=== PATIENT | female | born 1980 | race Caucasian/White ===

== ENCOUNTER 2017-01-08 19:36 | Emergency (ER) | payer OTHER ==
[~2017-01-08] VITALS: Ht 165.1 cm; Wt 220.4 kg
[2017-01-08 20:02] VITALS: Ht 165.1 cm; Wt 220.4 kg
[2017-01-08] MEDS ORDERED: PSEU120T2 PO (20:18)
[2017-01-08] MEDS ORDERED: PSEUCAP67 PO (20:18)
[2017-01-08] MEDS ORDERED: SALI1SPR3 NAE (20:18)
[2017-01-08] MEDS ORDERED: CEFU500T16 PO (20:41)
--- NOTE | 2017-01-08 20:42 | EMERGENCY ROOM VISIT NOTE ---
ED Visit Note First contact with patient: 20:14 CHIEF COMPLAINT: Left ear pain 1 week HISTORY OF PRESENT ILLNESS: Patient is a 36-year-old white female who presents to the emergency department for evaluation of left ear pain. She's had symptoms for 1 week. Prior to that she states that she has been sick with sinus and nasal congestion. She reports using Advil Cold and Sinus, Sudafed and saline nasal spray. She reports muffled hearing from the left ear and she thought that she felt some fluid in the ear so when she used her finger so we palpate ear canal she noted "blood and pus." She's not had any fevers. The left ear is primarily affected although she states she is beginning to feel similar symptoms in the right ear. She rates her pain a 3/10. REVIEW OF SYSTEMS: Review of systems as per HPI. All other systems reviewed were negative. At least 6 systems reviewed. PMH: Electronic medical records are reviewed and summarized as above/below. See Problem List. SOCIAL HISTORY: Patient lives at home. Lives with family. Nonsmoker. PHYSICAL EXAM: Vital Signs: Reviewed Nurse's notes. MENTAL STATUS: Alert and cooperative. Nontoxic appearing. HEAD: Atraumatic, without temporal or scalp tenderness. EYES: PERRL, EOMI, no discharge or injection. EARS: Right TM intact, calm a chronic scarring noted, no effusion, erythema or bulging. External canals clear. Examination of the left ear showed the external canal to be clear. No signs of otitis externa. TM is erythematous and purulent effusion is noted. There is no evidence for perforation. There is no pain, swelling or erythema over the mastoid. NOSE: Nares patent, turbinates edematous and boggy with clear rhinorrhea. MOUTH: Mucous membranes moist, no lesions, tongue and gums appear normal. THROAT: No pharyngeal injection, exudates, or tonsillar hypertrophy. Airway is patent. NECK: Supple, nontender, no lymphadenopathy. HEART: Regular rate and rhythm without murmurs, ectopy, gallops, or rubs. LUNGS: Clear to auscultation and breath sounds equal, no wheezes, rales, or rhonchi. SKIN: Normal. NEUROLOGICAL: Sensory and motor functions grossly intact. Normal gait. ED course: The patient has findings consistent with otitis media. Differential diagnoses entertained included URI, sinusitis, eustachian tube dysfunction, otitis externa, otitis media, TM perforation, among others. She was advised to continue the ocvi-vzv-kbnigwe medications and follow up with her primary care physician if her symptoms are not improving. 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 Surgical Problems: (1) History of cholecystectomy Status: Resolved Current/Historical Medications Scheduled Cefuroxime Axetil (Ceftin), 500 MG PO BID Pseudoephedrine Hcl (Sudafed 12 Hour), 120 MG PO BID Saline (Saline Nasal [place]), 2 SPRAYS LISA BID Scheduled PRN Pseudoephedrine-Ibuprofen (Advil Cold & Sinus), 1 CAP PO DIRECTED PRN for CONGESTION Allergies Coded Allergies: Amoxicillin (Verified Allergy, Severe, SOB-FACE SWELLS, 01/08/17) Penicillins (Verified Allergy, Severe, SOB-FACE SWELLS, 01/08/17) Famotidine (Verified Allergy, Intermediate, RASH, 01/08/17) Vital Signs Date Time Temp Pulse Resp B/P Pulse Ox O2 Delivery O2 Flow Rate FiO2 01/08/17 20:55 36.9 81 18 158/91 98 01/08/17 20:55 81 18 158/91 98 Room Air 01/08/17 20:02 36.9 84 18 166/93 98 Room Air Medications Administered Medications (Trade) Dose Ordered Sig/Adam Route Start Time Stop Time Status Last Admin Dose Admin Cefuroxime Axetil (Ceftin Tab) 500 mg NOW ONCE PO 01/08/17 20:45 01/08/17 20:46 DC 01/08/17 20:52 500 MG Departure Information Impression Primary Impression: Left otitis media Prescriptions Cefuroxime Axetil (CEFTIN) 500 Mg Tab 500 MG PO BID, #20 TAB Prov: Mirtha Walsh PA 01/08/17 Referrals Jan Webber M.D. (PCP) Patient Instructions My [facility] Additional Instructions Ceftin 500mg: Take one pill twice daily for 10 days for your ear infection. All antibiotics can cause diarrhea. If this occurs and you feel worse or it does not resolve in 1-2 days follow up with your doctor or return to the Emergency Department as this could be signs of serious underlying problems. Any medication can cause an allergic reaction, stop the pills immediately and return to the ER for rash, hives, breathing difficulties, or swelling. Tylenol and ibuprofen as needed for discomfort. Continue aodu-cxn-ybelciu medications for symptomatic care. Follow-up with your primary care physician next week if your symptoms are not improving.
[2017-01-08] MEDS ORDERED: CEFUROXIME AXETIL 250 MG TAB PO ONE (20:45)
[2017-01-08 20:55] VITALS: BP 158/91; PULSE 81; TEMP 36.9; O2SAT 98
== END 2017-01-08 20:56 | disposition home or self-care (01) ==
LOC: C.EDB 19:39 → C.EDD 20:56
DX: H66.92 Otitis media, unspecified, left ear (principal); I10 Essential (primary) hypertension; J45.909 Unspecified asthma, uncomplicated; Z88.0 Allergy status to penicillin

== ENCOUNTER 2017-01-15 08:58 | Emergency (ER) | payer OTHER ==
[~2017-01-15] VITALS: Ht 167.6 cm; Wt 220.0 kg
[~2017-01-15 08:58] MED LIST: CEFU500T16 PO; PSEU120T2 PO; PSEUCAP67 PO; SALI1SPR3 NAE
[2017-01-15 09:07] VITALS: BP 176/11; PULSE 80; TEMP 36.5; O2SAT 98; Ht 167.6 cm; Wt 220.0 kg
[2017-01-15] MEDS ORDERED: SULF10SO2 OPL (09:30)
--- NOTE | 2017-01-15 09:31 | EMERGENCY ROOM VISIT NOTE ---
ED Visit Note First contact with patient: 09:13 CHIEF COMPLAINT: "I think I have pink eye." HISTORY OF PRESENT ILLNESS: Patient is a 36-year-old white female who returns to the emergency department for evaluation of left eye redness, crusting and drainage that she noticed when she woke up this morning. I saw her here one week ago for URI symptoms and left ear pain and diagnosed her with a left otitis media. She is taking her Ceftin as prescribed. She states that she developed some increased congestion about 5 days ago. Her ear pain is improving however. Her nose very stuffy but she is unable to blow anything out of it. She does note some postnasal drip. She reports using Advil Cold and Sinus, Sudafed, Flonase and saline nasal spray. She's not had any fevers. She denies any ear pain at the present time. She reports that she cannot take Claritin because it "makes her heart race." She wears glasses but not contact lenses. Her right eye is not involved. She denies any eye pain or changes in vision. She denies any concern for foreign body. REVIEW OF SYSTEMS: Review of systems as per HPI. All other systems reviewed were negative. At least 6 systems reviewed. PMH: Electronic medical records are reviewed and summarized as above/below. See Problem List. SOCIAL HISTORY: Patient lives at home. Lives with family. Nonsmoker. PHYSICAL EXAM: Vital Signs: Reviewed Nurse's notes. MENTAL STATUS: Alert and cooperative. Nontoxic appearing. HEAD: Atraumatic, without temporal or scalp tenderness. EYES: PERRL, EOMI, left eye is slightly injected and there is some cobblestoning of the conjunctiva. Right eye is not involved. EARS: Tympanic membranes are intact bilaterally, clear fluid noted, no erythema or bulging of the TMs. Chronic scar is noted. External canals clear. There is no evidence for perforation. There is no pain, swelling or erythema over the mastoid. NOSE: Nares patent, turbinates edematous and boggy without rhinorrhea. MOUTH: Mucous membranes moist, no lesions, tongue and gums appear normal. THROAT: No pharyngeal injection, exudates, or tonsillar hypertrophy. Airway is patent. NECK: Supple, nontender, no lymphadenopathy. HEART: Regular rate and rhythm without murmurs, ectopy, gallops, or rubs. LUNGS: Clear to auscultation and breath sounds equal, no wheezes, rales, or rhonchi. SKIN: Normal. NEUROLOGICAL: Sensory and motor functions grossly intact. Normal gait. ED course: Patient was seen and evaluated as above. She will be placed on an antibiotic drop. Differential diagnoses entertained included an allergic rhinitis, allergic versus viral versus bacterial conjunctivitis, URI, sinusitis , eustachian tube dysfunction, otitis externa, otitis media, TM perforation, among others. She was advised to continue the nyux-xxv-prrovns medications and follow up with her primary care physician if her symptoms are not improving. 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 Surgical Problems: (1) History of cholecystectomy Status: Resolved Current/Historical Medications Scheduled Cefuroxime Axetil (Ceftin), 500 MG PO BID Pseudoephedrine Hcl (Sudafed 12 Hour), 120 MG PO BID Saline (Saline Nasal [place]), 2 SPRAYS LSIA BID Sulfacetamide Sodium (Ophth) (Bleph-10), 2 DROPS OPL QID Scheduled PRN Pseudoephedrine-Ibuprofen (Advil Cold & Sinus), 1 CAP PO DIRECTED PRN for CONGESTION Allergies Coded Allergies: Amoxicillin (Verified Allergy, Severe, SOB-FACE SWELLS, 01/15/17) Penicillins (Verified Allergy, Severe, SOB-FACE SWELLS, 01/15/17) Famotidine (Verified Allergy, Intermediate, RASH, 01/15/17) Vital Signs Date Time Temp Pulse Resp B/P Pulse Ox O2 Delivery O2 Flow Rate FiO2 01/15/17 09:07 36.5 80 18 176/11 98 Room Air Departure Information Impression Primary Impression: Conjunctivitis, left eye Prescriptions Sulfacetamide Sodium (Ophth) (BLEPH-10) 10 % Sangeetha 2 DROPS OPL QID, #5 ML Prov: Costlow, Mirtha C.,PA 01/15/17 Referrals Jan Webber M.D. (PCP) Patient Instructions My [facility] Additional Instructions 2 antibiotic drops in the left eye 4 times daily. You may also intermittently apply a cool compress and wear sunglasses for additional relief. Continue your prescriptions and the pxuf-[id number]-[id number] medications that you have been taking for your symptoms. Follow-up with your primary care provider this week for recheck.
== END 2017-01-15 09:42 | disposition home or self-care (01) ==
LOC: C.EDB 08:59 → C.EDA 09:42
DX: H10.9 Unspecified conjunctivitis (principal); I10 Essential (primary) hypertension; K21.9 Gastro-esophageal reflux disease without esophagitis; F32.9 Major depressive disorder, single episode, unspecified; J45.909 Unspecified asthma, uncomplicated; G89.29 Other chronic pain; Z86.718 Personal history of other venous thrombosis and embolism; Z87.828 Personal history of other (healed) physical injury and trauma; Z90.49 Acquired absence of other specified parts of digestive tract; Z88.0 Allergy status to penicillin; Z88.1 Allergy status to other antibiotic agents; Z88.8 Allergy status to other drugs, medicaments and biological substances

== ENCOUNTER 2018-06-16 12:10 | Emergency (ER) | payer OTHER ==
[~2018-06-16] VITALS: Ht 170.2 cm; Wt 222.0 kg
[2018-06-16 12:14] VITALS: TEMP 36.5; Ht 170.2 cm; Wt 222.0 kg
[2018-06-16] MEDS ORDERED: MoRPHine SULFATE 4 MG/ML 1 ML CARP\\VIAL IV STA (12:22)
[2018-06-16] MEDS ORDERED: SODIUM CHLORIDE 0.9% 1000ML 1,000 ML IV STA (12:22)
[2018-06-16] MEDS ORDERED: ONDANSETRON INJ 2 MG/ML 2 ML VIAL IV STA (12:22)
--- NOTE | 2018-06-16 12:32 | EMERGENCY ROOM VISIT NOTE ---
History Report prepared by [facility]: Pao Torrez Under the Supervision of: Dr. Scot Hays M.D. First contact with patient: 12:16 Chief Complaint: FLANK PAIN Stated Complaint: PAIN IN BACK,LOWER LEFT SIDE,FEVER,CHILLS History of Present Illness The patient is a 37 year old female who presents to the Emergency Room with complaints of persistent left sided flank pain for the past 3 days. She rates her pain as an 8/10 in severity. She reports she was at the [facility] 2 days ago when she drank a diet Pepsi and her pain developed, as well as increased urinary frequency, stating " I felt sicker than hell after drinking that". She notes she normally only drinks water or unsweetened iced tea. Movement worsens her pain. She denies any recent falls or trauma to her back. She reports a fever of 99 degrees and the chills. She has not been nauseous or vomiting. She denies any recent cough, cold symptoms, diarrhea or rashes. She has no history of kidney stones but has experienced urinary infections in the past. She believes her Mother has a history of kidney problems and is on dialysis. The patient does take daily Xarelto for a history of blood clots. She denies any current concern for . She denies any history of ovarian cysts. Her LMP was approximately May 27. 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 A total of 10 systems reviewed and were otherwise negative. 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 Surgical Problems: (1) History of cholecystectomy Family History Kidney disease Kidney stones Social History Smoking Status: Former Smoker Alcohol Use: none Drug Use: none Marital Status: single Housing Status: lives with family Occupation Status: unemployed Current/Historical Medications Scheduled Apixaban (Eliquis), 5 MG PO HS Levofloxacin (Levaquin), 750 MG PO QD@08 Scheduled PRN Acetaminophen (Tylenol), 975 MG PO Q6H PRN for Pain or Fever Oxycodone Ir (Roxicodone Ir), 1 TAB PO Q4H PRN for Pain Allergies Coded Allergies: Amoxicillin (Verified Allergy, Severe, SOB-FACE SWELLS, 06/16/18) Penicillins (Verified Allergy, Severe, SOB-FACE SWELLS, 06/16/18) Famotidine (Verified Allergy, Intermediate, RASH, 06/16/18) Physical Exam Vital Signs Date Time Temp Pulse Resp B/P (MAP) Pulse Ox O2 Delivery O2 Flow Rate FiO2 06/16/18 17:07 88 20 139/69 97 Room Air 06/16/18 14:30 91 18 123/59 100 Room Air 06/16/18 12:14 36.5 97 18 162/90 99 Room Air Physical Exam GENERAL: Patient is in no acute distress. HEENT: No acute trauma, normocephalic atraumatic, mucous membranes moist, no nasal congestion, no scleral icterus. NECK: No stridor, no adenopathy, no meningismus, trachea is midline. LUNGS: Clear to auscultation bilaterally, no wheeze, no rhonchi, breath sounds equal. HEART: Subtle systolic murmur, regular rate and rhythm. ABDOMEN: Soft, nontender, bowel sounds positive, no hernias, no peritonitis, location of tenderness with palpation is difficult secondary to obesity. BACK: Tender over lower back bilaterally, more so on the left, no rash. EXTREMITIES: No cyanosis, full range of motion of all the joints without pain or difficulty, no signs for acute trauma. NEUROLOGIC: Oriented x 3, no acute motor or sensory deficits, no focal weakness. SKIN: No rash, no jaundice, no diaphoresis. Medical Decision & Procedures ER Provider Diagnostic Interpretation: Radiology results as stated below per my review and radiologist interpretation: EXAMINATION: RENAL ULTRASOUND CLINICAL HISTORY: left flank pain COMPARISON STUDY: None FINDINGS: The right kidney measures 11.6 cm. The left kidney measures 11.7 cm. There is no evidence of hydronephrosis. There are no renal masses. No bladder masses are visualized. Dependent echoes are likely artifactual. Neither ureteral jet was visualized. IMPRESSION : 1. Very limited study secondary to the patient's large body habitus 2. No evidence of hydronephrosis Electronically signed by: Con Oro M.D. 06/16/2018 4:27 PM Laboratory Results 06/16/18 13:34 Red Blood Count 4.30, Mean Corpuscular Volume 84.2, Mean Corpuscular Hemoglobin 27.0, Mean Corpuscular Hemoglobin Concent 32.0, Mean Platelet Volume 10.9, Neutrophils (%) (Auto) 78.4, Lymphocytes (%) (Auto) 12.8, Monocytes (%) (Auto) 7.9, Eosinophils (%) (Auto) 0.7, Basophils (%) (Auto) 0.1, Neutrophils # (Auto) 6.56, Lymphocytes # (Auto) 1.07, Monocytes # (Auto) 0.66, Eosinophils # (Auto) 0.06, Basophils # (Auto) 0.01 06/16/18 13:34 Test 06/16/18 13:00 06/16/18 13:34 Urine Color DK YELLOW Urine Appearance TURBID (CLEAR) Urine pH 5.5 (4.5-7.5) Urine Specific [place] 1.024 (1.000-1.030) Urine Protein NEG (NEG) Urine Glucose (UA) TRACE (NEG) Urine Ketones NEG (NEG) Urine Occult Blood NEG (NEG) Urine Nitrite POS (NEG) Urine Bilirubin NEG (NEG) Urine Urobilinogen NEG (NEG) Urine Leukocyte Esterase MODERATE (NEG) Urine WBC (Auto) >30 /hpf (0-5) Urine RBC (Auto) 5-10 /hpf (0-4) Urine Hyaline Casts (Auto) 1-5 /lpf (0-5) Urine Epithelial Cells (Auto) >30 /lpf (0-5) Urine Bacteria (Auto) 3+ (NEG) Urine Pathogenic Casts /lpf (0) White Blood Count 8.37 K/uL (4.8-10.8) Red Blood Count 4.30 M/uL (4.2-5.4) Hemoglobin 11.6 g/dL (12.0-16.0) Hematocrit 36.2 % (37-47) Mean Corpuscular Volume 84.2 fL (80-100) Mean Corpuscular Hemoglobin 27.0 pg (25-34) Mean Corpuscular Hemoglobin Concent 32.0 g/dl (32-36) Platelet Count 173 K/uL (130-400) Mean Platelet Volume 10.9 fL (7.4-10.4) Neutrophils (%) (Auto) 78.4 % Lymphocytes (%) (Auto) 12.8 % Monocytes (%) (Auto) 7.9 % Eosinophils (%) (Auto) 0.7 % Basophils (%) (Auto) 0.1 % Neutrophils # (Auto) 6.56 K/uL (1.4-6.5) Lymphocytes # (Auto) 1.07 K/uL (1.2-3.4) Monocytes # (Auto) 0.66 K/uL (0.11-0.59) Eosinophils # (Auto) 0.06 K/uL (0-0.5) Basophils # (Auto) 0.01 K/uL (0-0.2) RDW Standard Deviation 45.0 fL (36.4-46.3) RDW Coefficient of Variation 14.7 % (11.5-14.5) Immature Granulocyte % (Auto) 0.1 % Immature Granulocyte # (Auto) 0.01 K/uL (0.00-0.02) Anion Gap 8.0 mmol/L (3-11) Est Creatinine Clear Calc Drug Dose 237.6 ml/min Estimated GFR () 132.4 Estimated GFR (Non- 114.2 BUN/Creatinine Ratio 9.8 (10-20) Calcium Level 9.1 mg/dl (8.5-10.1) Total Bilirubin 0.9 mg/dl (0.2-1) Aspartate Amino Transf (AST/SGOT) 10 U/L (15-37) Alanine Aminotransferase (ALT/SGPT) 21 U/L (12-78) Alkaline Phosphatase 63 U/L (45-117) Total Protein 7.4 gm/dl (6.4-8.2) Albumin 2.9 gm/dl (3.4-5.0) Globulin 4.5 gm/dl (2.5-4.0) Albumin/Globulin Ratio 0.6 (0.9-2) Lipase 61 U/L (73-393) Human Chorionic Gonadotropin, Qual NEG (NEG) Laboratory results reviewed by me. Medications Administered Medications (Trade) Dose Ordered Sig/Adam Route Start Time Stop Time Status Last Admin Dose Admin Ondansetron HCl (Zofran Inj) 4 mg NOW STAT IV 06/16/18 12:22 06/16/18 12:27 DC 06/16/18 14:31 4 MG Sodium Chloride 1,000 ml @ 999 mls/hr Q1H1M STAT IV 06/16/18 12:22 06/16/18 13:22 DC 06/16/18 13:31 999 MLS/HR Morphine Sulfate (MoRPHine SULFATE INJ) 4 mg NOW STAT IV 06/16/18 12:22 06/16/18 12:27 DC 06/16/18 14:31 4 MG Levofloxacin (Levaquin Tab) 750 mg NOW STAT PO 06/16/18 13:44 06/16/18 13:46 DC 06/16/18 14:30 750 MG ED Course 1221: The patient was evaluated in room B9. A complete history and physical exam was performed. 1222: Morphine Sulfate 4 mg IV, NSS 1000 ml @ 999 mls/hr IV, Zofran 4 mg IV. 1344: Levaquin 750 mg PO. 1425: CT scan informed me the patient is too large for the CT scanner. I will order an ultrasound instead. 1427: I reevaluated the patient. She is resting comfortably. I updated her on my plan to order an ultrasound and she is agreeable with the plan. Medical Decision The differential diagnoses considered include: Musculoskeletal pain, hernia, renal colic, UTI, pyelonephritis, ovarian cyst, herpes zoster. There is no leukocytosis or concerning anemia. No significant electrolyte abnormality, kidney failure, hepatitis or pancreatitis. Urinalysis is suggestive of infection, urine culture is pending. Abdominal and pelvis CT was ordered however, it could not be performed as the patient was too heavy. A renal ultrasound was done, no obvious hydronephrosis. On exam, the patient was not febrile, there was no peritonitis, she was not toxic. Patient received IV saline, IV morphine and IV Zofran. She was given oral Levaquin as antibiotic coverage. The patient likely has a UTI and early pyelonephritis. She has had urinary symptoms. She is being discharged on Levaquin as she has a penicillin allergy. She will return to this ER if worsening or not improving. Outpatient family doctor follow-up was suggested. [place] Drug Monitoring Program Search Results: patient reviewed within database, no issues identified Medication Reconcilliation Current Medication List: was personally reviewed by me Blood Pressure Screening Patient's blood pressure: Elevated blood pressure Blood pressure disposition: Elevated BP felt to be situational Impression Primary Impression: Left flank pain Additional Impression: Pyelonephritis Scribe Attestation The scribe's documentation has been prepared under my direction and personally reviewed by me in its entirety. I confirm that the note above accurately reflects all work, treatment, procedures, and medical decision making performed by me. Departure Information Dispostion Home / Self-Care Prescriptions Oxycodone Ir (Roxicodone Ir) 5 Mg Tab 1 TAB PO Q4H Y for Pain, #8 TAB Prov: Scot Hays M.D. 06/16/18 Levofloxacin (Levaquin) 750 Mg Tab 750 MG PO QD@08, #9 TAB Prov: Scot Hays M.D. 06/16/18 Referrals No Doctor, Assigned (PCP) Patient Instructions My [facility] Additional Instructions levaquin daily for 9 more days may use oxy ir 1 tab every 4 hours for severe pain heat may help rest stay well hydrated return for fever, vomiting or worsening symptoms follow with nancy peralta this week Problem Qualifiers
[2018-06-16] MEDS ORDERED: LEVOFLOXACIN 250 MG TAB PO STA (13:44)
[2018-06-16 13:52] LABS: BASO % 0.1 %; BASO ABS # 0.01 K/uL (0-0.2); EOS % 0.7 %; EOS ABS # 0.06 K/uL (0-0.5); HEMATOCRIT 36.2 % (37-47); HEMOGLOBIN 11.6 g/dL (12.0-16.0); IG# 0.01 K/uL (0.00-0.02); LYMPH % 12.8 %; LYMPH ABS # 1.07 K/uL (1.2-3.4); MEAN CELL VOLUME 84.2 fL (80-100); MEAN PLATELET VOLUME 10.9 fL (7.4-10.4); MONO % 7.9 %; MONO ABS # 0.66 K/uL (0.11-0.59); NEUT % 78.4 %; NEUT ABS # 6.56 K/uL (1.4-6.5); PLATELET COUNT 173 K/uL (130-400); RED CELL DISTRIBUTION WIDTH CV 14.7 % (11.5-14.5); WHITE BLOOD COUNT 8.37 K/uL (4.8-10.8)
[2018-06-16] MEDS ORDERED: APIX1TAB3 PO (14:00)
[2018-06-16] MEDS ORDERED: ACET-1311 PO (14:02)
[2018-06-16 14:13] LABS: ALBUMIN 2.9 gm/dl (3.4-5.0); CALCIUM 9.1 mg/dl (8.5-10.1); CREATININE 0.65 mg/dl (0.60-1.20); POTASSIUM 3.8 mmol/L (3.5-5.1); TOTAL PROTEIN 7.4 gm/dl (6.4-8.2)
[2018-06-16] MEDS ORDERED: ONDANSETRON INJ 2 MG/ML 2 ML VIAL ONE (14:28)
[2018-06-16] MEDS ORDERED: MoRPHine SULFATE 4 MG/ML 1 ML CARP\\VIAL ONE (14:28)
--- NOTE | 2018-06-16 16:28 | DIAGNOSTIC IMAGING REPORT ---
EXAMINATION: RENAL ULTRASOUND CLINICAL HISTORY: left flank pain COMPARISON STUDY: None FINDINGS: The right kidney measures 11.6 cm. The left kidney measures 11.7 cm. There is no evidence of hydronephrosis. There are no renal masses. No bladder masses are visualized. Dependent echoes are likely artifactual. Neither ureteral jet was visualized. IMPRESSION : 1. Very limited study secondary to the patient's large body habitus 2. No evidence of hydronephrosis Electronically signed by: Con Oro M.D. 06/16/2018 4:27 PM Dictated Date/Time: 06/16/2018 4:26 PM
[2018-06-16] MEDS ORDERED: LEVO1TAB35 PO (16:53)
[2018-06-16] MEDS ORDERED: OXYC-90 PO (16:53)
[2018-06-16 17:07] VITALS: BP 139/69; PULSE 88; O2SAT 97
== END 2018-06-16 17:14 | disposition home or self-care (01) ==
LOC: C.EDB 12:11
DX: N12 Tubulo-interstitial nephritis, not specified as acute or chronic (principal); R03.0 Elevated blood-pressure reading, without diagnosis of hypertension; J45.909 Unspecified asthma, uncomplicated; K21.9 Gastro-esophageal reflux disease without esophagitis; Z86.718 Personal history of other venous thrombosis and embolism; Z87.891 Personal history of nicotine dependence; Z79.01 Long term (current) use of anticoagulants; Z79.899 Other long term (current) drug therapy; Z88.0 Allergy status to penicillin; Z88.8 Allergy status to other drugs, medicaments and biological substances; Z84.1 Family history of disorders of kidney and ureter